=== PATIENT | female | born 1985 | race Caucasian/White ===

== ENCOUNTER → 2021-03-30 09:16 | Outpatient (BNVA) | payer BC, SELFPAY | PROVIDERS: PCP Internal Medicine; Visit Provider Internal Medicine Pulmonary Disease ==

== ENCOUNTER → 2021-04-20 09:30 | Outpatient (BNVA) | payer BC, SELFPAY | PROVIDERS: PCP Internal Medicine; Visit Provider Internal Medicine Pulmonary Disease ==

== ENCOUNTER 2021-05-03 08:12 | Outpatient (REF) | payer BC, SELFPAY ==
--- NOTE | 2021-05-03 17:05 | PFT_ITS ---
FLOWS: FEV1 of 116% of predicted at 3.38 L. FVC 109% of predicted at 3.81 L. FEV1 to FVC ratio of 0.89. No bronchodilator response except in small to medium airways. LUNG VOLUMES: Total lung capacity 105% of predicted at 5.00 L. Residual volume 85% of predicted at 1.21 L. Slow vital capacity 113% of predicted at 3.79 L. Expiratory reserve volume 82% of predicted at 0.97 L. Diffusion capacity is normal. IMPRESSION: No obstructive or restrictive ventilatory defect. No bronchodilator response except in small to medium airways. This test results can be observed in quiescent asthma. Clinical correlation is advised. MD VICKY Fernandez/MODL / [id number]
== END 2021-05-03 08:13 | disposition home or self-care (01) ==
LOC: HO.RESP 08:12
PROVIDERS: PCP Internal Medicine; Visit Provider Internal Medicine Pulmonary Disease
DX: J45.909 Unspecified asthma, uncomplicated (principal)
CPT/HCPCS: 94060; 94727; 94729